=== PATIENT | female | born 1960 | race Caucasian/White ===

== ENCOUNTER 2017-11-09 09:04 | Emergency (ER) | payer OTHER ==
[2017-11-09] MEDS ORDERED: Lidocaine 1%* 5 ML VIAL INJ ONE (10:05)
--- NOTE | 2017-11-09 10:31 | UC ---
Skin Complaint HPI - HPI Summary HPI Summary: bump on head since Jun. saw her pcp, advised to observe. Now , more swlling and sore. no hx mrsa or fever odr DM - History of Current Complaint Hx Obtained From: Patient Onset/Duration: Gradual Onset Timing: Constant Current Severity: Moderate Pain Intensity: 0 Aggravating Factor(s): Nothing Alleviating Factor(s): Nothing <Mili Cota - Last Filed: 11/09/17 10:40> <Katarzyna Gee - Last Filed: 11/09/17 12:17> - History of Current Complaint Chief Complaint: [facility] Time Seen by Provider: 11/09/17 09:40 Stated Complaint: LUMP ON BACK OF HEAD - Allergy/Home Medications Allergies/Adverse Reactions: Allergies Allergy/AdvReac Type Severity Reaction Status Date / Time No Known Allergies Allergy Verified 11/09/17 09:33 Home Medications: Home Medications Multivit-Min/Iron Fum/Folic AC [Multi Vitamin and Mineral] 1 tab PO DAILY [History Confirmed 11/09/17] Review of Systems Constitutional: Negative Skin: Rash - bump on scalp Eyes: Negative ENT: Negative Respiratory: Negative Cardiovascular: Negative Gastrointestinal: Negative Genitourinary: Negative Motor: Negative Neurovascular: Negative Musculoskeletal: Negative Neurological: Negative Psychological: Negative Is Patient Immunocompromised?: No All Other Systems Reviewed And Are Negative: Yes <Mili Cota - Last Filed: 11/09/17 10:40> PMH/Surg Hx/FS Hx/Imm Hx Previously Healthy: Yes - Surgical History Surgical History: Yes Surgery Procedure, Year, and Place: L lobe of thyroid removed 09/2017 - Family History Known Family History: Positive: None - Social History Occupation: Employed Full-time Lives: With Family Alcohol Use: Daily Substance Use Type: None Smoking Status (MU): Never Smoked Tobacco - Immunization History Vaccination Up to Date: Yes <Mili Cota - Last Filed: 11/09/17 10:40> Physical Exam Triage Information Reviewed: Yes Appearance: Well-Appearing Vital Signs: Initial Vital Signs Temp 99.5 F 11/09/17 09:20 Pulse 79 11/09/17 09:20 Resp 16 11/09/17 09:20 BP 151/83 11/09/17 09:20 Pulse Ox 98 11/09/17 09:20 Vital Signs Reviewed: Yes Eyes: Positive: Conjunctiva Clear ENT: Positive: Normal ENT inspection Neck: Positive: Supple, Nontender, No Lymphadenopathy Respiratory: Positive: Lungs clear, Normal breath sounds Cardiovascular: Positive: RRR, No Murmur Abdomen Description: Positive: Nontender, No Organomegaly, Soft Bowel Sounds: Positive: Present Musculoskeletal: Positive: ROM Intact Neurological: Positive: Alert Psychological: Positive: Age Appropriate Behavior Skin Exam: Normal, Other - 3cm fluctuant spot base of sclp with mild erythema and tenderness. No adenoapthy to head or neck. <Mili Cota - Last Filed: 11/09/17 10:40> Vital Signs: Initial Vital Signs Temp 99.5 F 11/09/17 09:20 Pulse 79 11/09/17 09:20 Resp 16 11/09/17 09:20 BP 151/83 11/09/17 09:20 Pulse Ox 98 11/09/17 09:20 <Katarzyna Gee - Last Filed: 11/09/17 12:17> Course/Dx - Course Course Of Treatment: TIME OUT. SITE PREP BETADINE. lOCAL WITH 2ML OF 1% LIDOCAINE. TIP OF #11 SHARRI USED TO MAKE STAB INCISION(SUPERFICIAL). PUSS DRAINED AND CULTURED. MODERATED CHEESE TYPE MATERIAL EXPRESSED FROM WOUND. IRRIGATED STERILE NACL. PACKING PLACED. MINIMAL BLEEDING. PT TOLERATED WELL. STERILE TECHNIQUE USED. PT FELT BETTER/MUCH LESS PAIN POST. REPEAT BP STILL ELEVATED. PT ATTRIBUTES TO THIS VIST AND PAIN. WILL RECHECK ON F/U. - Diagnoses Provider Diagnoses: SEBACOUS CYST WITH SECONDARY INFECTION/I&D <Mili Cota - Last Filed: 11/09/17 10:40> Discharge - Sign-Out/Discharge Documenting (check all that apply): Discharge/Admit/Transfer - Billing Disposition and Condition Condition: IMPROVED Disposition: Home <Mili Cota - Last Filed: 11/09/17 10:40> - Billing Disposition and Condition Condition: IMPROVED Disposition: Home <Katarzyna Gee - Last Filed: 11/09/17 12:17> - Discharge Plan Condition: Improved Disposition: HOME Patient Education Materials: Epidermal Inclusion Cysts (ED), Abscess Follow-up (ED) Referrals: Sole Lackey MD [Primary Care Provider] - If Needed Aroldo Nelson MD [Medical Doctor] - 4 Days Additional Instructions: RETURN TO [facility] IN 2 DAYS OR SOONER FOR ANY CONCERNS Attestation Statement User Type: Provider - I was available for consult. This patient was seen by the [facility]. The patient was not presented to, seen by, or examined by me. -Primitivo <Katarzyna Gee - Last Filed: 11/09/17 12:17>
[2017-11-09 10:47] VITALS: BP 140/76
== END 2017-11-09 10:50 | disposition home or self-care (01) ==
LOC: UCCORT 09:04
DX: L72.3 Sebaceous cyst (principal)
CPT/HCPCS: 10060; 87070; 87076; 87205; 87640; 87641; 99211; G0463

== ENCOUNTER 2022-11-01 07:56 | Inpatient (IN) ==
[2022-11-01] MEDS ORDERED: NS 0.9% 1000 ml BAG 1,000 ML IV ONE (08:37)
[2022-11-01 09:14] LABS: ABS Basophils 0.1 10^3/uL (0.0-0.1); ABS Lymphocytes 1.7 10^3/uL (1.0-4.8); ABS Monocytes 0.6 10^3/uL (0.0-0.9); ABS Nucleated RBC 0.01 10^3/ul; Eosinophil % 0.1 %; Hematocrit 21.9 % (35-45); Hemoglobin 7.3 g/dL (11.5-14.3); Lymphocyte % 14.8 %; Mean Corpuscular Hemoglobin 28.5 pg (27-33); Mean Corpuscular Hgb Conc 33.5 g/dL (31-36); Mean Corpuscular Volume 85.2 fL (80-97); Mean Platelet Volume 8.7 fL (7.5-11.2); Nucleated Red Blood Cells % 0.1 /100 WBC (0.0-0.4); Platelet Count 301 10^3/uL (150-450); Red Blood Count 2.56 10^6/uL (3.63-4.92); Red Cell Distribution Width 13.9 % (12-17); White Blood Count 11.3 10^3/uL (3.8-11.8)
[2022-11-01] MEDS ORDERED: Pantoprazole 80 mg in NS BAG 80 MG/250 ML BAG IV ONE (09:18)
[2022-11-01] MEDS ORDERED: Pantoprazole VIAL 40 MG VIAL IV ONE (09:18)
[2022-11-01 09:22] LABS: INR 1.11 (0.88-1.18)
[2022-11-01 09:32] LABS: Albumin 4.2 g/dL (3.2-5.2); Albumin/Globulin Ratio 1.4 (1-3); Calcium 9.4 mg/dL (8.6-10.3); Creatinine, Serum 0.89 mg/dL (0.51-0.95); Globulin 2.9 g/dL (2-4); Magnesium 2.1 mg/dL (1.9-2.7); Potassium 3.9 mmol/L (3.5-5.0); Total Bilirubin 0.3 mg/dL (0.2-1.0); Total Protein 7.1 g/dL (6.4-8.9); eGFR CKD-EPI 73.3 (>60)
[2022-11-01 09:47] LABS: TSH Ultra Thyroid Stim Horm 3.67 mcIU/mL (0.34-5.60)
[2022-11-01] MEDS ORDERED: Iohexol 350 (CONTRAST) 500 ML MDV IV ONE (10:10)
[2022-11-01 11:59] LABS: High Sensitivity Troponin 1 Hr 11 pg/mL (<15)
[2022-11-01] MEDS ORDERED: HYDROmorphone 1 MG/1 ML SYRINGE IV PRN (15:58)
[2022-11-01] MEDS ORDERED: Prochlorperazine 5 mg/ml 2 ml VIAL (10 mg) IV PRN (15:58)
[2022-11-01] MEDS ORDERED: Naloxone 0.4 mg VIAL 0.4 mg/ml 1 ml VIAL IV PRN (15:58)
[2022-11-01] MEDS ORDERED: ceFAZolin 2 GM in NS PREMIX 2 GM/100 ML BAG IVPB ONE (16:38)
[2022-11-01] MEDS ORDERED: Midazolam 2 mg/2 ml VIAL 1 mg/ml 2 ml VIAL (2 mg) ONE (17:03)
[2022-11-01] MEDS ORDERED: Lidocaine 2% PF 5 ML VIAL ONE (17:03)
[2022-11-01] MEDS ORDERED: fentaNYL 100 mcg/2 ml 50 MCG/ML VIAL ONE ×3 (17:03→20:31)
[2022-11-01] MEDS ORDERED: Propofol 10 MG/ML 20 ML BTL ONE (17:03)
[2022-11-01] MEDS ORDERED: Acetaminophen IV 1 GM/100ML 1,000 MG/100 ML BAG IV ONE (17:08)
[2022-11-01] MEDS ORDERED: Rocuronium 50 mg VIAL 10 mg/ml 5 ml VIAL (50 mg) ONE (17:08)
[2022-11-01] MEDS ORDERED: Bupivacaine 0.25% w/EPI 10 ML SDV ONE (17:57)
[2022-11-01] MEDS ORDERED: Ondansetron 4 mg VIAL 2 MG/ML 2 ml VIAL ONE (18:30)
[2022-11-01] MEDS ORDERED: Dexamethasone IV 4 MG/ML VIAL 1 ml VIAL ONE (18:30)
[2022-11-01] MEDS ORDERED: Phenylephrine 40 mcg/mL 10mL (400mcg) SYRINGE ONE (18:46)
[2022-11-01] MEDS: fentaNYL 100 mcg/2 ml 50 MCG/ML VIAL IV PRN ×5 (19:46→20:32)
[2022-11-01] MEDS ORDERED: HYDROmorphone 0.5 MG/0.5 ML SYRINGE IV SLOW PU PRN (19:48)
[2022-11-01] MEDS: HYDROmorphone 1 MG/1 ML SYRINGE IV SLOW PU PRN (23:18)
[2022-11-01] MEDS: NS 0.9% 1000 ml BAG 1,000 ML IV SCH (23:38)
[2022-11-02 06:34] LABS: ABS Lymphocytes 0.9 10^3/uL (1.0-4.8); ABS Monocytes 0.6 10^3/uL (0.0-0.9); ABS Neutrophils 14.2 10^3/uL (1.5-7.6); Hematocrit 21.8 % (35-45); Hemoglobin 7.2 g/dL (11.5-14.3); Lymphocyte % 5.9 %; Mean Corpuscular Hemoglobin 29.3 pg (27-33); Mean Corpuscular Volume 88.9 fL (80-97); Mean Platelet Volume 8.3 fL (7.5-11.2); Platelet Count 244 10^3/uL (150-450); Red Blood Count 2.45 10^6/uL (3.63-4.92); Red Cell Distribution Width 14.2 % (12-17); White Blood Count 15.8 10^3/uL (3.8-11.8)
[2022-11-02 07:08] LABS: Albumin 3.7 g/dL (3.2-5.2); Albumin/Globulin Ratio 1.5 (1-3); Calcium 8.4 mg/dL (8.6-10.3); Creatinine, Serum 0.8 mg/dL (0.51-0.95); Globulin 2.4 g/dL (2-4); Potassium 4.2 mmol/L (3.5-5.0); Total Bilirubin 0.4 mg/dL (0.2-1.0); Total Protein 6.1 g/dL (6.4-8.9); eGFR CKD-EPI 83.3 (>60)
[2022-11-02] MEDS: HYDROmorphone 1 MG/1 ML SYRINGE IV SLOW PU PRN (10:10)
[2022-11-02 15:39] LABS: Hematocrit 20.2 % (35-45); Hemoglobin 6.7 g/dL (11.5-14.3)
[2022-11-03] MEDS: Acetaminophen IV 1 GM/100ML 1,000 MG/100 ML BAG IV PRN (03:03)
[2022-11-03 07:01] LABS: ABS Eosinophils 0.1 10^3/uL (0.0-0.5); ABS Monocytes 0.7 10^3/uL (0.0-0.9); ABS Neutrophils 6.7 10^3/uL (1.5-7.6); Eosinophil % 1.5 %; Hematocrit 18.6 % (35-45); Hemoglobin 6.3 g/dL (11.5-14.3); Lymphocyte % 20.5 %; Mean Corpuscular Hemoglobin 30.1 pg (27-33); Mean Corpuscular Hgb Conc 34.1 g/dL (31-36); Mean Corpuscular Volume 88.2 fL (80-97); Mean Platelet Volume 8.6 fL (7.5-11.2); Platelet Count 221 10^3/uL (150-450); Red Blood Count 2.11 10^6/uL (3.63-4.92); Red Cell Distribution Width 14.2 % (12-17); White Blood Count 9.6 10^3/uL (3.8-11.8)
[2022-11-03 07:12] LABS: Albumin 3.3 g/dL (3.2-5.2); Albumin/Globulin Ratio 1.7 (1-3); Calcium 8.1 mg/dL (8.6-10.3); Creatinine, Serum 0.77 mg/dL (0.51-0.95); Total Bilirubin 0.3 mg/dL (0.2-1.0); Total Protein 5.3 g/dL (6.4-8.9); eGFR CKD-EPI 87.2 (>60)
[2022-11-03] MEDS: Ondansetron 4 mg VIAL 2 MG/ML 2 ml VIAL IV PRN ×2 (08:57→22:43)
[2022-11-03] MEDS: NS 0.9% 1000 ml BAG 1,000 ML IV SCH (09:00)
[2022-11-03 18:55] LABS: Hematocrit 29.4 % (35-45); Hemoglobin 9.7 g/dL (11.5-14.3)
[2022-11-04] MEDS: NS 0.9% 1000 ml BAG 1,000 ML IV SCH (00:01)
[2022-11-04] MEDS: Ondansetron 4 mg VIAL 2 MG/ML 2 ml VIAL IV PRN (02:30)
[2022-11-04] MEDS: Acetaminophen IV 1 GM/100ML 1,000 MG/100 ML BAG IV PRN (02:37)
[2022-11-04 08:53] LABS: Hematocrit 29.6 % (35-45); Hemoglobin 10.1 g/dL (11.5-14.3)
[2022-11-04] MEDS ORDERED: Calcium Carb (TUMS) 500 mg CHEW TAB PO PRN (17:40)
[2022-11-05 09:54] VITALS: BP 148/89
== END 2022-11-05 10:40 | disposition home or self-care (01) | DRG 950 ==
LOC: ED 07:56 → EDHOLD 12:18 → SSU 21:43
PROVIDERS: ADMIT Surgery; ATTEND Surgery